=== PATIENT | male | born 1960 | race Caucasian/White ===

== ENCOUNTER 2020-02-07 07:48 | Outpatient (CLI) | payer BC ==
--- NOTE | 2020-02-07 11:24 | MRI ---
MRI LEFT SHOULDER WITHOUT CONTRAST: HISTORY: Left shoulder pain. COMPARISON: None. FINDINGS: BICEPS TENDON: Extraarticular biceps tendon is normal. Moderate intraarticular tendinosis. LABRUM: The superior labrum is torn. Anterior-posterior biceps labral expansion. There is also an intrasubs tance tear of the posterior labrum extending to the posterior inferior labrum. The anterior inferior labrum is also torn. The labrum has near circumferential intrasubstance tearing. There is a small paralabral ganglion pseudocyst at 6 o'clock. This measures up to 5 mm in size. The re is also an anterior paralabral ganglion pseudocyst measuring 4 mm with a small body within it. ROTATOR CUFF: Moderate tendinosis subscapularis. Mild bursal surface fraying of the supraspinatus and infraspinatu s tendons. There is mild interstitial delamination at the footprint of the anterior 5 mm infraspinat us tendon involving 20-30% of the footprint without a full-thickness perforation. There is also high -grade tendinosis of the supraspinatus tendon with an interstitial-type delamination which has hidden interstitial tears throughout the footprint less than 40% of the footprint width. There is myotendinous junction partial tearing supraspinatus tendon anterior 1 cm fibers 30-40% of th e width. BONES: TYPE II ACROMION: Low-grade down-sloping. 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 Normal subcoracoid space. Normal glenoid version. Small osteophytes of the inferior of the glenoid. Cartilage: No full-thickness chondral defect. There is a high-grade chondral fissure of the anterio r inferior glenoid near the torn labrum with adjacent delamination. Muscles: No muscle atrophy. Soft Tissues: Small subacromial subdeltoid bursa effusion. Subcoracoid fat is maintained. Axillary pouch is maintained. IMPRESSION: 1. Near circumferential intrasubstance labral tear with paralabral cyst anteriorly and inferiorly co ntaining small bodies. 2. Extensive tendinosis and interstitial tearing throughout the supraspinatus and infraspinatus tend ons without a full-thickness perforation. These interstitial tears are hidden tears with low-grade m yotendinous delamination. 3. Mild bursal surface fraying supraspinatus tendon. 4. 30-40% undersurface partial tear of the myotendinous junction anterior 1 cm fibrous supraspinatus tendon. 5. Moderately thickened coracoacromial ligament which may be a source of impingement. 6. Small anterior inferior focus of chondrolabral delamination adjacent to the anterior inferior lab ral tearing. POS: HOME
== END 2020-02-07 07:49 | disposition home or self-care (01) ==
LOC: SCSMRI 07:48
PROVIDERS: ATTEND Orthopaedic Surgery
DX: M75.122 Complete rotator cuff tear or rupture of left shoulder, not specified as traumatic (principal); S46.912A Strain of unspecified muscle, fascia and tendon at shoulder and upper arm level, left arm, initial encounter; S43.402A Unspecified sprain of left shoulder joint, initial encounter; M25.812 Other specified joint disorders, left shoulder

== ENCOUNTER 2024-02-27 09:22 | Outpatient (CLI) | payer BC ==
[2024-02-27] MEDS ORDERED: Iopamidol 370 76% 100 ML VIAL ONE (12:17)
== END 2024-02-27 09:23 | disposition home or self-care (01) ==
LOC: BICCT 09:22
PROVIDERS: ATTEND Physician Assistant Medical
DX: R10.84 Generalized abdominal pain (principal); K59.00 Constipation, unspecified; R74.8 Abnormal levels of other serum enzymes; K57.30 Diverticulosis of large intestine without perforation or abscess without bleeding
CPT/HCPCS: 74177; 82565; Q9967